=== PATIENT | male | born 1960 | race African-American/Black ===

== ENCOUNTER 2016-10-20 14:39 | Inpatient (IN) | payer MEDICAID, OTHER ==
[~2016-10-20] VITALS: Ht 177.8 cm; Wt 66.1 kg
[2016-10-20] MEDS ORDERED: SODIUM CHLORIDE 0.9% 1,000 ML IV ONE ×2 (15:33→20:47)
[2016-10-20 15:47] LABS: BASOPHILS % 0.9 % (0.0-2.0); EOSINOPHILS % 0.1 % (0.0-5.0); HEMATOCRIT. 44.7 % (42.0-52.0); HEMOGLOBIN. 14.5 g/dL (14.0-18.0); LYMPHOCYTES % 44.4 % (20.0-50.0); MEAN CORPUSCULAR HEMOGLOBIN 29.5 pg (28.0-32.0); MEAN CORPUSCULAR VOLUME 90.9 fL (80.0-94.0); MONOCYTES % 3.7 % (2.0-8.0); NEUTROPHILS % 50.9 % (40.0-76.0); PLATELET 142 x1000/uL (130-400); RED BLOOD CELL COUNT 4.92 mill/uL (4.7-6.1); RED CELL DISTRIBUTION WIDTH 17.1 % (11.6-14.6)
[2016-10-20 15:56] LABS: CARBON DIOXIDE 22 mEq/L (21-32); CHLORIDE 101 mEq/L (98-107)
[2016-10-20 16:41] LABS: ETHANOL BLOOD 376 mg/dL
[2016-10-20] MEDS ORDERED: SODIUM CHLORIDE 0.9% 1000ML BAG (SEPSIS BOLUS) IV ONE (21:24)
[2016-10-20] MEDS ORDERED: LORAZEPAM 2MG/ML CPJ IV ONE (21:30)
[2016-10-20 21:31] LABS: *AMPHETAMINES SCREEN URINE NEGATIVE (NEGATIVE); *BARBITURATES SCREEN URINE NEGATIVE (NEGATIVE); *BENZODIAZEPINES SCREEN URINE NEGATIVE (NEGATIVE); *COCAINE SCREEN URINE NEGATIVE (NEGATIVE); CANNABINOID URINE SCREEN NEGATIVE (NEGATIVE); METHADONE URINE SCREEN NEGATIVE (NEGATIVE); OPIATES URINE SCREEN NEGATIVE (NEGATIVE); PHENCYCLIDINE URINE SCREEN NEGATIVE (NEGATIVE)
[2016-10-20 21:35] LABS: TROPONIN I 0.03 ng/mL (0.00-0.04)
[2016-10-20] MEDS ORDERED: FOLIC ACID 1 MG, THIAMINE HCL 100 MG, MVI, ADULT NO.1 10 ML in DEXTROSE 5% WATER 1,000 ML IV ONE ×4 (21:45)
[2016-10-21] MEDS ORDERED: LORAZEPAM 2MG/ML CPJ IV PRN (03:30)
[2016-10-21] MEDS ORDERED: ONDANSETRON HCL 4MG/2ML VIAL IV PRN (03:30)
[2016-10-21] MEDS ORDERED: CLONIDINE 0.2MG TABLET PO SCH (06:30)
[2016-10-21] MEDS: SODIUM CHLORIDE 0.9% 1,000 ML IV SCH ×2 (06:45→15:25)
[2016-10-21 07:12] LABS: BASOPHILS % 0.9 % (0.0-2.0); EOSINOPHILS % 0.1 % (0.0-5.0); HEMATOCRIT. 36.4 % (42.0-52.0); HEMOGLOBIN. 12.1 g/dL (14.0-18.0); MEAN CORPUSCULAR HEMOGLOBIN 29.8 pg (28.0-32.0); MEAN CORPUSCULAR VOLUME 89.6 fL (80.0-94.0); MEAN PLATELET VOLUME 8.7 fl (7.4-10.4); MONOCYTES % 7.3 % (2.0-8.0); NEUTROPHILS % 50.7 % (40.0-76.0); PLATELET 107 x1000/uL (130-400); RED BLOOD CELL COUNT 4.06 mill/uL (4.7-6.1); RED CELL DISTRIBUTION WIDTH 16.2 % (11.6-14.6)
[2016-10-21 07:53] LABS: CARBON DIOXIDE 25 mEq/L (21-32); CHLORIDE 99 mEq/L (98-107); CREATINE KINASE 583 IU/L (39-308); TROPONIN I 0.05 ng/mL (0.00-0.04)
[2016-10-21] MEDS ORDERED: MAGNESIUM 2 G PREMIX 50 ML IV SCH (08:00)
[2016-10-21] MEDS: CHLORDIAZEPOXIDE 25MG CAPSULE PO SCH ×2 (08:47→16:07)
[2016-10-21] MEDS ORDERED: METOPROLOL TARTRATE 50MG TABLET PO SCH (09:30)
[2016-10-21] MEDS ORDERED: METOPROLOL TARTRATE 25MG TABLET PO SCH ×2 (09:31→10:00)
[2016-10-21] MEDS ORDERED: THIAMINE HCL 100MG TABLET PO NR (09:50)
[2016-10-21] MEDS: THIAMINE HCL 100MG TABLET PO SCH (09:57)
[2016-10-21] MEDS: FOLIC ACID 1MG TABLET PO SCH (09:57)
[2016-10-21] MEDS: ENOXAPARIN 40MG/0.4ML SYR SUBCUT SCH (10:15)
[2016-10-21 12:41] LABS: T4 FREE 1.12 ng/dL (0.76-1.46)
[2016-10-21 16:58] LABS: CREATINE KINASE MB FRACTION 1.3 ng/mL (0.5-3.6); TROPONIN I 0.04 ng/mL (0.00-0.04)
[2016-10-21 17:38] LABS: T4 FREE 1.07 ng/dL (0.76-1.46)
[2016-10-21] MEDS: METOPROLOL TARTRATE 25MG TABLET PO SCH (19:46)
[2016-10-21 20:13] LABS: CLARITY URINE CLEAR (CLEAR); COLOR URINE YELLOW (YELLOW); KETONES URINE 1+ (NEGATIVE); LEUKOCYTE ESTERASE URINE NEGATIVE (NEGATIVE); NITRITE URINE NEGATIVE (NEGATIVE); OCCULT BLOOD URINE 2+ (NEGATIVE); PH URINE 5.5 (4.5-8.0); PROTEIN URINE TRACE (NEGATIVE); SPECIFIC GRAVITY URINE 1.015 (1.005-1.030)
[2016-10-21 20:29] LABS: *AMPHETAMINES SCREEN URINE NEGATIVE (NEGATIVE); *BARBITURATES SCREEN URINE NEGATIVE (NEGATIVE); *BENZODIAZEPINES SCREEN URINE NEGATIVE (NEGATIVE); *COCAINE SCREEN URINE NEGATIVE (NEGATIVE); CANNABINOID URINE SCREEN NEGATIVE (NEGATIVE); METHADONE URINE SCREEN NEGATIVE (NEGATIVE); OPIATES URINE SCREEN NEGATIVE (NEGATIVE); PHENCYCLIDINE URINE SCREEN NEGATIVE (NEGATIVE)
[2016-10-21] MEDS: CLONIDINE 0.1MG TABLET PO PRN (22:41)
[2016-10-22] MEDS: METOPROLOL TARTRATE 25MG TABLET PO SCH ×2 (00:27→06:22)
[2016-10-22 02:03] LABS: CREATINE KINASE MB FRACTION 1.4 ng/mL (0.5-3.6); TROPONIN I 0.04 ng/mL (0.00-0.04)
[2016-10-22] MEDS: SODIUM CHLORIDE 0.9% 1,000 ML IV SCH ×3 (06:30→23:38)
[2016-10-22] MEDS: THIAMINE HCL 100MG TABLET PO SCH (08:36)
[2016-10-22] MEDS: FOLIC ACID 1MG TABLET PO SCH (08:36)
[2016-10-22] MEDS: CHLORDIAZEPOXIDE 25MG CAPSULE PO SCH ×2 (08:36→17:24)
[2016-10-22] MEDS: ENOXAPARIN 40MG/0.4ML SYR SUBCUT SCH (09:34)
[2016-10-22] MEDS: METOPROLOL TARTRATE 50MG TABLET PO SCH ×4 (10:52→23:39)
[2016-10-22] MEDS ORDERED: METOPROLOL TARTRATE 50MG TABLET PO SCH (12:00)
[2016-10-22 12:31] LABS: BASOPHILS % 1.1 % (0.0-2.0); EOSINOPHILS % 0.2 % (0.0-5.0); HEMATOCRIT. 35.8 % (42.0-52.0); HEMOGLOBIN. 11.8 g/dL (14.0-18.0); LYMPHOCYTES % 26.7 % (20.0-50.0); MEAN CORPUSCULAR HEMOGLOBIN 29.8 pg (28.0-32.0); MEAN CORPUSCULAR VOLUME 90.4 fL (80.0-94.0); MONOCYTES % 6.9 % (2.0-8.0); NEUTROPHILS % 65.1 % (40.0-76.0); PLATELET 84 x1000/uL (130-400); RED BLOOD CELL COUNT 3.96 mill/uL (4.7-6.1); RED CELL DISTRIBUTION WIDTH 15.8 % (11.6-14.6)
[2016-10-22 12:33] LABS: CARBON DIOXIDE 26 mEq/L (21-32); CHLORIDE 96 mEq/L (98-107); CREATINE KINASE 310 IU/L (39-308)
[2016-10-22] MEDS ORDERED: REGADENOSON 0.4 MG/5 ML IV ONE (16:15)
[2016-10-22] MEDS: LOSARTAN POTASSIUM 25 MG TABLET PO SCH (16:33)
[2016-10-23] MEDS: CLONIDINE 0.1MG TABLET PO PRN ×2 (04:45→04:46)
[2016-10-23] MEDS: METOPROLOL TARTRATE 50MG TABLET PO SCH ×3 (05:46→17:07)
[2016-10-23] MEDS: THIAMINE HCL 100MG TABLET PO SCH (08:29)
[2016-10-23] MEDS: LOSARTAN POTASSIUM 25 MG TABLET PO SCH (08:29)
[2016-10-23] MEDS: CHLORDIAZEPOXIDE 25MG CAPSULE PO SCH ×2 (08:30→16:12)
[2016-10-23] MEDS: FOLIC ACID 1MG TABLET PO SCH (08:30)
[2016-10-23] MEDS: SODIUM CHLORIDE 0.9% 1,000 ML IV SCH ×2 (08:33→17:45)
[2016-10-23] MEDS ORDERED: IBUPROFEN 400MG TABLET PO NR (16:02)
[2016-10-24] MEDS: IBUPROFEN 800MG TABLET PO SCH ×2 (01:18→08:38)
[2016-10-24] MEDS: METOPROLOL TARTRATE 50MG TABLET PO SCH ×3 (01:18→11:56)
[2016-10-24] MEDS: SODIUM CHLORIDE 0.9% 1,000 ML IV SCH (05:20)
[2016-10-24] MEDS: CHLORDIAZEPOXIDE 25MG CAPSULE PO SCH (08:38)
[2016-10-24] MEDS: THIAMINE HCL 100MG TABLET PO SCH (08:38)
[2016-10-24] MEDS: LOSARTAN POTASSIUM 25 MG TABLET PO SCH (08:38)
[2016-10-24] MEDS: FOLIC ACID 1MG TABLET PO SCH (08:38)
[2016-10-24 12:00] VITALS: BP 107/81
== END 2016-10-24 15:40 | disposition home or self-care (01) | DRG 775 ==
LOC: ER 14:56 → EDBD 21:48 → 8WST 21:48 → ENRESERV 22:18 → 8WST 10-21
PROVIDERS: ADMIT Family Medicine; ATTEND Family Medicine
DX: F10.229 Alcohol dependence with intoxication, unspecified (principal); F10.239 Alcohol dependence with withdrawal, unspecified; G92 Toxic encephalopathy; I47.2 Ventricular tachycardia; E83.42 Hypomagnesemia; I27.2 Other secondary pulmonary hypertension; M62.82 Rhabdomyolysis; E87.2 Acidosis; F17.210 Nicotine dependence, cigarettes, uncomplicated; I10 Essential (primary) hypertension; Y90.8 Blood alcohol level of 240 mg/100 ml or more
CPT/HCPCS: 36415; 71010; 73610; 80048; 80053; 80061; 80305; 81001; 82550; 82553; 83036; 83605; 83735; 83880; 84439; 84443; 84484; 85025; 85379; 87040; 87086; 93005; 93306; 93970; 96361; 96365; 96375; 97116; 97162; 99285; C1893; G0482; J1650; J2060; J3411; J3475; J3490; J7030; J7040; J7070